=== PATIENT | female | born 2000 | race Caucasian/White ===

== ENCOUNTER 2021-03-22 13:12 | Inpatient (IN) | payer BC ==
[~2021-03-22] VITALS: Ht 180.3 cm; Wt 117.9 kg
[2021-03-22 16:02] LABS: HEMOGLOBIN 13.8 gm/dl (12.3-15.3); RED BLOOD COUNT 5.02 M/UL (4.00-5.10); WHITE BLOOD COUNT 5.5 K/UL (4.5-11.0)
[2021-03-23 04:41] LABS: HEMOGLOBIN 12.2 gm/dl (12.3-15.3)
[2021-03-23 05:12] LABS: RED BLOOD COUNT 4.48 M/UL (4.00-5.10); WHITE BLOOD COUNT 3.1 K/UL (4.5-11.0)
[2021-03-23] MEDS ORDERED: IBU800 MG PO (11:00)
[2021-03-23] MEDS ORDERED: CELEXA20 MG PO (11:00)
[2021-03-23] MEDS ORDERED: LORATADINE10 MG PO (11:01)
--- NOTE | 2021-03-24 03:45 | NUR ---
03/24/2021 @ 02:40 - Patient O2 sat staying at 85-89%. Instructed patient to take deep breaths. O2 sat not increasing. 03/24/2021 @ 02:45 - Patient placed on venti mask at 60% due to high flow nasal cannula shortage. Patient O2 sat not increasing past 88%. 03/24/2021 @ 02:55 - Patient placed on airvo at 60LPM with an FiO2 of 80%. Patient O2 sat is staying maintained between 94-97%. Patient tolerating well. Will continue to monitor.
[2021-03-24 04:39] LABS: HEMOGLOBIN 11.6 gm/dl (12.3-15.3); RED BLOOD COUNT 4.29 M/UL (4.00-5.10)
[2021-03-24 04:50] LABS: WHITE BLOOD COUNT 4.6 K/UL (4.5-11.0)
[2021-03-24 05:02] LABS: BUN/CREATININE RATIO 19 (0-10)
--- NOTE | 2021-03-24 05:49 | NUR ---
Patient O2 sat is fluctuating between 83%-91%. Airvo increased to 92%. Patient O2 sat increased to 97-99%. Will continue to monitor.
[2021-03-25 02:56] LABS: HEMOGLOBIN 11.3 gm/dl (12.3-15.3); RED BLOOD COUNT 4.21 M/UL (4.00-5.10)
[2021-03-25 03:14] LABS: BUN/CREATININE RATIO 21 (0-10)
[2021-03-26 04:34] LABS: BUN/CREATININE RATIO 19 (0-10)
[2021-03-27 07:54] LABS: HEMOGLOBIN 11.8 gm/dl (12.3-15.3); RED BLOOD COUNT 4.39 M/UL (4.00-5.10)
[2021-03-27 08:18] LABS: BUN/CREATININE RATIO 19 (0-10)
[2021-03-28 05:28] LABS: BUN/CREATININE RATIO 24 (0-10)
[2021-03-29 06:57] LABS: HEMOGLOBIN 12.5 gm/dl (12.3-15.3); RED BLOOD COUNT 4.64 M/UL (4.00-5.10)
[2021-03-29 06:58] LABS: WHITE BLOOD COUNT 10.1 K/UL (4.5-11.0)
[2021-03-29 07:29] LABS: BUN/CREATININE RATIO 22 (0-10)
[2021-03-30 05:10] LABS: HEMOGLOBIN 12.5 gm/dl (12.3-15.3); RED BLOOD COUNT 4.65 M/UL (4.00-5.10); WHITE BLOOD COUNT 10.6 K/UL (4.5-11.0)
[2021-03-30 05:35] LABS: BUN/CREATININE RATIO 23 (0-10)
[2021-03-30] MEDS ORDERED: DECADRON6 MG PO (10:25)
== END 2021-03-30 14:21 | disposition home or self-care (01) | DRG 177 ==
LOC: ER1 13:12 → CDU 19:00 → MED SURG 4 19:00
PROVIDERS: Internal Medicine; Physician Assistant; ADMIT Internal Medicine
PROC: XW033E5 Introduction of Remdesivir Anti-infective into Peripheral Vein, Percutaneous Approach, New Technology Group 5 (ICD-10-PCS; principal; 2021-03-22)
PROC: 3E0333Z Introduction of Anti-inflammatory into Peripheral Vein, Percutaneous Approach (ICD-10-PCS; 2021-03-22)
PROC: 8E0ZXY6 Isolation (ICD-10-PCS; 2021-03-23)
DX: U07.1 COVID-19 (principal); J96.01 Acute respiratory failure with hypoxia; J12.82 Pneumonia due to coronavirus disease 2019; J15.9 Unspecified bacterial pneumonia; N39.0 Urinary tract infection, site not specified; N17.9 Acute kidney failure, unspecified; E87.1 Hypo-osmolality and hyponatremia; R73.9 Hyperglycemia, unspecified; T38.0X5A Adverse effect of glucocorticoids and synthetic analogues, initial encounter; J45.909 Unspecified asthma, uncomplicated; G43.909 Migraine, unspecified, not intractable, without status migrainosus; E86.1 Hypovolemia; E83.51 Hypocalcemia; R80.9 Proteinuria, unspecified; B96.4 Proteus (mirabilis) (morganii) as the cause of diseases classified elsewhere; E88.09 Other disorders of plasma-protein metabolism, not elsewhere classified; Z88.8 Allergy status to other drugs, medicaments and biological substances; Z79.899 Other long term (current) drug therapy
CPT/HCPCS: 36415; 36600; 71045; 71275; 80048; 80053; 80076; 80202; 81001; 82550; 82553; 82803; 82962; 83036; 83735; 83874; 84100; 84484; 84703; 85025; 85027; 85379; 87040; 93005; 94640; 94664; 94760; 96374; 96375; 99285; J0696; J1100; J1335; J1650; J3370; J7030; J7070; Q9967; U0002